=== PATIENT | female | born 1990 | race Caucasian/White ===

== ENCOUNTER 2022-06-28 05:44 | Inpatient (IN) | payer BC, SELFPAY ==
[2022-06-28] VITALS (206 sets, daily range): BP systolic 108–156; BP diastolic 47–90; PULSE 79–139; TEMP 36.3–36.8; O2SAT 92–100; BMI 33.8
--- NOTE | 2022-06-28 06:32 | PM.IMHP ---
H&P: HPI History of Present Illness Date/Time: 06/28/22 06:32 Chief Complaint: Headaches and increased blood pressure at 38 weeks gestation Narrative: this is a 32-year-old female 3 para 2 assisted with with headaches and elevated blood pressures at 38 weeks gestation. Her has been complicated by increased blood pressures over the last 2 visits. PH labs were drawn. She did have a section following a vaginal delivery and has been discussed in great detail [facility] Family History Family History Other Patient denies significant medical history Social History Social History Substance use: never Spiritual care concerns: No Meds Home Medications and Allergies Home Medications Medication Instructions Recorded Confirmed Type prenat.vits,jose,nfe-jxbd-wmito 1 tablet PO DAILY 06/11/22 06/11/22 History Allergies Allergy/AdvReac Type Severity Reaction Status Date / Time No Known Allergies Allergy Unknown Unverified 03/28/16 19:23 Exam Const: General: cooperative, healthy appearing, comfortable, well groomed and overweight Orientation/consciousness: oriented to person, oriented to place and oriented to time HENMT: Head: normal to inspection Resp: Effort & Inspection: normal respiratory effort Cardio: Rate: regular rate Rhythm: regular rhythm Heart sounds: S1 normal heart sound present and S2 normal heart sound present GI: Inspection: normal to inspection ( uterus soft) : Speculum Exam - Vagina: normal appearance of the vagina Speculum Exam - Cervix: normal appearance of the cervix ( cervix 2/ 70/-2. AROM clear. FHT reassuring) Assessment and Plan Assessment and plan (1) Term : Code(s): Z34.90 - Encounter for supervision of normal , unspecified, unspecified trimester Status: Acute (2) Gestational hypertension: Code(s): O13.9 - Gestational [-induced] hypertension without significant proteinuria, unspecified trimester Status: Acute (3) Previous section: Code(s): Z98.891 - History of uterine scar from previous surgery Status: Acute Plan medical induction of labor spontaneous vaginal delivery is expected. PI labs pending
--- NOTE | 2022-06-28 06:37 | LDADM ---
This patient, Princess Reich, was admitted to Labor/Delivery/Recovery 104 on 06/28/22 at 05:44. Plans for labor, pain management and were discussed with patient. Patient/family oriented to hospital policies and general routines including ID bracelet, bed and alarms, visiting hours, pain management, procedures, bathroom and other care routines, personal items, smoking policy, room service/diet and guest tray routines, security routines, and visiting hours. Patient/Family are encouraged to report perceived risks to care and to ask questions if they do not understand what they are told or what they should do. See OBIX for further documentation.
[2022-06-28 07:21] LABS: Basophils Percent Auto 0.6 % (0.2-1.2); Eosinophils Absolute Auto 0.1 K/mm3 (0-0.3); Eosinophils Percent Auto 1.8 % (0-4.4); Hematocrit 31.8 % (37.0-47.0); Hemoglobin 10.6 g/dL (12.0-15.0); Immature Granulocyte Absolute 0.05 K/mm3 (0.00-0.031); Immature Granulocyte Percent A 0.7 % (0-0.5); Lymphocytes Absolute Auto 1.39 K/mm3 (0.9-3.2); Lymphocytes Percent Auto 19.3 % (18.3-44.2); Mean Corpuscular HGB Conc 33.3 g/dl (32-36); Mean Corpuscular Hemoglobin 26.8 pg (26-34); Mean Corpuscular Volume 80.3 fl (80-100); Mean Platelet Volume 10.2 fl (7.4-10.4); Monocytes Absolute Auto 0.4 K/mm3 (0.1-0.6); Monocytes Percent Auto 4.9 % (2.6-8.5); Neutrophils Absolute Auto 5.2 K/mm3 (1.3-6.7); Neutrophils Percent Auto 72.7 % (45.5-73.1); Platelet Count Result 231 k/mm3 (150-375); Red Blood Count 3.96 M/mm3 (4.2-5.4); Red Cell Distribution Width 13.5 % (11.5-14.5); White Blood Count 7.2 K/mm3 (4.5-10.0)
[2022-06-28] MEDS: LACTATED RINGERS 1,000 ML 125 ML IV CONT ×2 (07:27→19:16)
[2022-06-28 07:33] LABS: Alanine Aminotransferase 27 U/L (6-35); Albumin Level 3.5 g/dL (3.5-5.1); Alkaline Phosphatase 199 U/L (38-126); Anion Gap 10 mmol/L (8-16); Aspartate Amino Transferase 22 U/L (14-36); Blood Urea Nitrogen 7 mg/dL (7-17); Calcium 8.3 mg/dL (8.4-10.2); Carbon Dioxide 19 mmol/L (22-30); Chloride 106 mmol/L (98-107); Estimated CRCL calculation 187 ml/min; Estimated Glomerular Filt Rate > 60; Glucose 87 mg/dL (65-110); Potassium 3.8 mmol/L (3.4-5.0); Sodium 135 mmol/L (137-145); Uric Acid 3.9 mg/dL (2.5-7.5)
--- NOTE | 2022-06-28 12:52 | PM.OBPNLAB ---
Pain Control Date/time seen: 06/28/22 12:52 Pain control: tolerating well Pelvic Exam Dilation (cm): 2 Effacement (%): 50 station: -2 Amniotic membrane status: Leaking
[2022-06-28 13:28] LABS: Rapid Plasma Reagin Non-Reactive (NonReactive)
--- NOTE | 2022-06-28 16:08 | PM.OBPNLAB ---
Pain Control Date/time seen: 06/28/22 16:08 Pain control: tolerating well Pelvic Exam Dilation (cm): 4 Effacement (%): 50 station: -2 Amniotic membrane status: Leaking
[2022-06-28] MEDS: ACETAMINOPHEN 500 MG TABLET 1000 MG PO (21:31)
[2022-06-29] VITALS (219 sets, daily range): BP systolic 79–154; BP diastolic 42–94; PULSE 78–162; TEMP 36.2–37.5; O2SAT 90–100
[2022-06-29] MEDS: AMPICILLIN 2 GM/NS 100 ML 2 GM/100 ML BAG IVPB (00:25)
[2022-06-29] MEDS: LACTATED RINGERS 1,000 ML 125 ML IV CONT ×2 (03:26→08:34)
[2022-06-29] MEDS: AMPICILLIN 1 GM/NS 50 ML 1 GM/50 ML BAG IVPB ×3 (04:40→14:07)
--- NOTE | 2022-06-29 05:26 | PM.OBPNLAB ---
Pain Control Date/time seen: 06/29/22 05:26 Pain control: tolerating well and epidural Pelvic Exam Dilation (cm): 5 Effacement (%): 80 station: -2 Amniotic membrane status: Leaking
[2022-06-29] MEDS: SODIUM CHLORIDE 0.9% IV 300 ML 600 ML I-UTERINE (07:10)
[2022-06-29] MEDS: ONDANSETRON INJ 4 MG/2 ML VIAL IV PUSH (07:53)
[2022-06-29] MEDS: OXYTOCIN 30 UNITS/NS 500 ML 30 UNITS/500 ML BAG 12 UNITS IV CONT (08:45)
--- NOTE | 2022-06-29 12:48 | PM.OBPNLAB ---
Pain Control Date/time seen: 06/29/22 12:48 Pain control: tolerating well and epidural Pelvic Exam Dilation (cm): 7 Effacement (%): 80 station: -2 Amniotic membrane status: Leaking
--- NOTE | 2022-06-29 15:52 | PM.OBPRVD ---
OB - Delivery Note Procedure Delivery date: 06/29/22 Procedure: mil Events: Gestational Hypertension Induction method: AROM Delivery augmentation: Pitocin Delivery monitor: External FHT and Internal FHT Route of delivery: Prior to decision for section, ACOG/[facility] labor guidelines were considered and discussed with the patient and staff. Decision made to proceed with the section.: No Episiotomy description: None Laceration Description: None Specimen: No Quantitative Blood Loss (ml): 160 Anesthesia type: Epidural Disposition: Floor [place] Baby Date of : 06/29/22 Time of : 15:43 Weeks of gestation at delivery: 38 gender: Male presentation: vertex position: Right Occiput Anterior Placenta delivery description: Spontaneous Cord Vessel Description: 3 Vessels and Delayed Cord Clamping score one minute: 8 score five minutes: 8
--- NOTE | 2022-06-29 15:54 | PM.DS ---
DS: Admitting Diagnosis Discharge Date 06/30/2022 Admitting Diagnosis Term /gestational hypertension DS: Discharge Diagnosis Discharge Diagnosis (1) Previous section: Code(s): Z98.891 - History of uterine scar from previous surgery Status: Acute (2) Gestational hypertension: Code(s): O13.9 - Gestational [-induced] hypertension without significant proteinuria, unspecified trimester Status: Acute (3) Term : Code(s): Z34.90 - Encounter for supervision of normal , unspecified, unspecified trimester Status: Acute DS: Summary Hospital Course Reason for hospitalization: patient was admitted for induction of labor at term secondary to elevated blood pressures. She had previous vaginal delivery followed by section Hospital Course: the patient underwent successful 24hour induction of labor with successful . Her hospital course unremarkable. She remained afebrile. She was up, voiding without difficulty, ambulating, generally without complaints. Time Spent with Patient Time attestation: Total time spent providing and/or coordinating discharge services: Exam Const: General: cooperative, healthy appearing, comfortable and average body habitus Orientation/consciousness: oriented to person, oriented to place and oriented to time Resp: Effort & Inspection: normal respiratory effort Cardio: Rate: regular rate Rhythm: regular rhythm Heart sounds: S1 normal heart sound present and S2 normal heart sound present GI: Inspection: normal to inspection ( Fundus firm below the umbilicus) Discharge Plan Discharge Attending physician on discharge: Selwyn Montenegro Discharging Clinician: Selwyn Montenegro Patient Disposition: Home, Self-Care Activity: may shower, no straining and pelvic rest Diet: heart healthy Patient Instructions: Antibiotic Form Stand Alone Forms: General Discharge Information Follow-up/Referrals: Selwyn Montenegro MD [Physician] - Discharge Medications: Continued #2 Tablet 1 tablet PO DAILY Date of admission: 06/28/22 05:44 Primary Care Provider: AndrésAnais Admitting Provider: Selwyn Montenegro Attending physician on admission: Selwyn Montenegro Condition: Stable
[2022-06-29] MEDS: OXYTOCIN 30 UNITS/NS 500 ML 30 UNITS/500 ML BAG 125 UNITS IV CONT (16:12)
[2022-06-29] MEDS: IBUPROFEN 600 MG TABLET PO (23:27)
[2022-06-30 04:35] VITALS: BP 118/54; PULSE 80; RESP 16; TEMP 35.9
[2022-06-30 05:42] LABS: Hematocrit 29.6 % (37.0-47.0); Hemoglobin 9.3 g/dL (12.0-15.0)
--- NOTE | 2022-06-30 06:11 | PM.OBPNVD ---
OB - PN: Subj Subjective Date/time seen: 06/30/22 06:11 Patient comments: no complaints and pain well controlled baby status: doing well and nursing well OB - PN: Obj Data Labs 06/30/22 04:47 06/28/22 07:14 Labs: Laboratory Results - last 24 hr 06/30/22 04:47 Hgb 9.3 L Hct 29.6 L OB - PN A/P Plan day: 1 Plan: routine care Time Spent With Patient Time: Total time spent is greater than 50% in coordination of care (as documented) at patient's floor/unit and/or counseling patient: Time with patient: less than 15 minutes Exam Const: General: cooperative, healthy appearing, comfortable and well groomed Orientation/consciousness: oriented to person, oriented to place and oriented to time HENMT: Head: normal to inspection Resp: Effort & Inspection: normal respiratory effort Cardio: Rate: regular rate Rhythm: regular rhythm Heart sounds: S1 normal heart sound present and S2 normal heart sound present GI: Inspection: normal to inspection
[2022-06-30] MEDS: DOCUSATE SODIUM 100 MG CAPSULE PO (07:26)
[2022-06-30] MEDS: MULTIVIT/MIN/PREN/FOL AC/IRON TABLET 1 TAB PO (07:26)
[2022-06-30] MEDS: POLYSACCHARIDE IRON COMPLEX 150 MG CAPSULE PO (07:27)
--- NOTE | 2022-06-30 08:21 | WPDANLDPN2 ---
Anes-Prog Note L&D Date/Time: 06/30/22 08:21 Comfortable throughout: labor and delivery Neuraxial method: epidural Epidural/Spinal procedure site: clean & non-tender Neuro status: Neuro function grossly intact. Cardiovascular status: normal Respiratory status: normal Airway patency: baseline Mental status: baseline Post-Op hydration status: normal Vital Signs: Last Vital Signs Temp 35.9 C L 06/30/22 04:35 Pulse 80 06/30/22 04:35 Resp 16 06/30/22 04:35 BP 118/54 L 06/30/22 04:35 Pulse Ox 99 06/29/22 15:41 O2 Del Method Room Air 06/28/22 06:35 Pain score (VAS): 0 I/O: Intake & Output 06/29/22 06/30/22 06/30/22 23:59 07:59 15:59 Intake Total 500 Output Total 160 Balance 340 Patient feedback: Patient satisfied with anesthetic care.
--- NOTE | 2022-06-30 08:22 | WPDANLDPN2 ---
Anes-Prog Note L&D Date/Time: 06/30/22 08:22 Comfortable throughout: labor and delivery Neuraxial method: epidural Epidural/Spinal procedure site: clean & non-tender Neuro status: Neuro function grossly intact. Cardiovascular status: normal Respiratory status: normal Airway patency: baseline Mental status: baseline Post-Op hydration status: normal Vital Signs: Last Vital Signs Temp 35.9 C L 06/30/22 04:35 Pulse 80 06/30/22 04:35 Resp 16 06/30/22 04:35 BP 118/54 L 06/30/22 04:35 Pulse Ox 99 06/29/22 15:41 O2 Del Method Room Air 06/28/22 06:35 Pain score (VAS): 0 I/O: Intake & Output 06/29/22 06/30/22 06/30/22 23:59 07:59 15:59 Intake Total 500 Output Total 160 Balance 340 Patient feedback: Patient satisfied with anesthetic care.
[2022-06-30 08:25] VITALS: BP 123/69; PULSE 98; RESP 18; TEMP 36.6; O2SAT 98
[2022-06-30 12:18] VITALS: BP 124/76; PULSE 84; RESP 16; TEMP 36.8; O2SAT 99
--- NOTE | 2022-06-30 17:03 | PC.NURSE ---
[id number] Mother led the conversation with her experience and plan to feed her so far and her ability to independently latch optimally without discomfort. Mother is feeding appropriately for growth of and understands stimulating infant to eat if needed. has had appropriate feedings in the last 24 hours meets the outcomes for weight, output and jaundice at this time. Mother states she is confident to continue effectively her infant at home, when to call for assistance and denies any additional assistance or education at this time. Reinforced understanding of milk production, transition of milk, signs of adequate intake, transition of stool, prevention/relief of engorgement, responsive watching for feeding cues, the different methods of stimulating to breastfeed 2-3 hours after the start of the last feeding, community resources, and when to call a provider using the resource of the mom and baby guide. Mother voiced understanding of the education shared. Reported to the primary RN.
[2022-07-01 10:55] VITALS: BP 133/79; PULSE 81; RESP 16; TEMP 36.7; O2SAT 97
== END 2022-06-30 18:00 | disposition home or self-care (01) | DRG 807 ==
LOC: ANHLDR 06-29 15:57 → ANHOB2 06-29 17:55
PROVIDERS: Admitting Provider Obstetrics & Gynecology; PCP Family Medicine; Visit Provider Obstetrics & Gynecology
DX: O13.4 Gestational [pregnancy-induced] hypertension without significant proteinuria, complicating childbirth (principal); Z37.0 Single live birth; Z3A.38 38 weeks gestation of pregnancy; O34.211 Maternal care for low transverse scar from previous cesarean delivery
CPT/HCPCS: 36415; 80053; 84550; 85014; 85018; 85025; 86592; 86850; 86900; 86901; A9270; J0290; J2405; J2590; J2795; J7030; J7120

== ENCOUNTER 2024-04-17 15:35 | Emergency (ER) | payer BC, OTHER, SELFPAY ==
--- NOTE | ~2024-04-17 | CT_ITS ---
CT abdomen pelvis w con Ordering provider: Poonam Donato History: 34 years Female with . RUQ and RLQ pain . Comparison: None. Technique: CT abdomen and pelvis with IV and without oral contrast. Automated exposure control and it erative reconstruction technique were employed. The dose-length product was 739.23 mGy-cm. 100 mL Omn ipaque 350 was given IV. Findings: VISUALIZED LOWER CHEST: 4 mm nodule is seen in the right lower lobe laterally. 6 months follow-up CT is advised. UPPER ABDOMINAL ORGANS: Liver: Mild hepatomegaly. Gallbladder: Normal. Spleen: Normal. Stomach/duodenum: Normal. Pancreas: Normal. Adrenals: Normal. Kidneys: Tiny cyst in the left kidney midpole. PELVIC ORGANS: The bladder is normal. Small follicles seen in the right ovary. A ruptured follicle i s possible in the left ovary. BOWEL AND MESENTERY: Colon: No evidence of diverticulitis. No evidence of appendicitis.. Small Bowel: Normal. No obstruction. Peritoneum/mesentery: No free air. Minimal free fluid is seen in the pelvis. No mesenteric lymphadeno sekou. Small mesenteric lymph nodes are noted. RETROPERITONEUM: Normal aorta. No retroperitoneal lymphadenopathy. MUSCULOSKELETAL: Superficial soft tissues: Small inguinal lymph nodes are noted. The superficial soft tissues are norm al. Bones: Normal spine. IMPRESSION: 1. No evidence of appendicitis, diverticulitis or intestinal obstruction. 2. Minimal free fluid in the pelvis which may be due to ruptured follicle. Clinical correlation advi sed. 3. Nodule in the right lung lower lobe. 6 months follow-up CT is advised. Reviewed, dictated and finalized at location [facility]. [facility] [employer] IMPRESSION: 1. No evidence of appendicitis, diverticulitis or intestinal obstruction. 2. Minimal free fluid in the pelvis which may be due to ruptured follicle. Cli nical correlation advised. 3. Nodule in the right lung lower lobe. 6 months follow-up CT is advised.
[2024-04-17 15:38] VITALS: BP 146/84; PULSE 105; RESP 17; TEMP 36.6; O2SAT 99
--- NOTE | 2024-04-17 15:41 | ED.ABDPAIN ---
HPI - Abdominal Pain General Chief Complaint: Abdominal Pain <Poonam Donato PA-C - Last Filed: 04/17/24 15:41> Stated Complaint: abdominal pain <Poonam Donato PA-C - Last Filed: 04/17/24 15:41> Time Seen by Provider: 04/17/24 16:53 <PEMA Delatorre Last Filed: 04/17/24 15:41> Focused HPI: 34-year-old female presents to the emergency department for abdominal pain for 3 days. Patient states 3 days ago she began having dull pain in the right upper quadrant right lower quadrant. Pain is persisted she has not developed diarrhea and vomiting which prompted her to come the ED. no aggravating or alleviating factors. She reports low-grade fevers with a T-max of a 100.8?. Denies dysuria, hematuria. Endorses history of , no other prior abdominal surgeries. GENERAL: Well-appearing, well-nourished, and in no acute distress. HEAD: Normocephalic, atraumatic. CHEST: Clear to auscultation. ?No respiratory distress. HEART: Regular rate and rhythm.? NEURO: ?Alert and oriented x3. Patient screened in triage and initial orders placed.? ?Additional care and disposition to be based upon?diagnostic testing and treatment. <Poonam Donato PA-C - Last Filed: 04/17/24 15:41> History of Present Illness HPI narrative: Agree with HPI. <Shakir Brar MD - Last Filed: 04/17/24 17:33> Related Data Home Medications: Home Medications ?Medication ?Instructions ?Recorded ?Confirmed ?Last Taken ?Type prenat.vits,jose,aag-sdla-ueunr 1 tablet PO DAILY 06/11/22 06/28/22 06/10/22 12:00 History <PEMA Delatorre Last Filed: 04/17/24 15:41> Allergies/Adverse Reactions: Allergies Allergy/AdvReac Type Severity Reaction Status Date / Time No Known Allergies Allergy Unknown Unverified 04/17/24 15:35 <Poonam Donato PA-C - Last Filed: 04/17/24 15:41> Review of Systems Review of Systems: All systems reviewed & are unremarkable except as noted in HPI and below <Shakir Brar MD - Last Filed: 04/17/24 17:33> Constitutional: Constitutional: Reports no additional constitutional complaints <Shakir Brar MD - Last Filed: 04/17/24 17:33> Cardiovascular: Cardiovascular: Reports no additional cardiovascular complaints <Shakir Brar MD - Last Filed: 04/17/24 17:33> Respiratory: Respiratory: Reports no additional respiratory complaints <Shakir Brar MD - Last Filed: 04/17/24 17:33> Gastrointestinal: Gastrointestinal: Reports no additional gastrointestinal complaints <Shakir Brar MD - Last Filed: 04/17/24 17:33> Genitourinary: Genitourinary: Reports no additional female genitourinary complaints <Shakir Brar MD - Last Filed: 04/17/24 17:33> [facility] Past Medical History Medical History: Medical History (Updated 04/17/24 @ 17:33 by Shakir Brar MD) Healthy female adult <Poonam Donato PA-C - Last Filed: 04/17/24 15:41> Surgical History Surgical History: Surgical History (Updated 04/17/24 @ 17:30 by Shakir Brar MD) Previous section <Poonam Donato PA-C - Last Filed: 04/17/24 15:41> Family History Family History: Family History Other Patient denies significant medical history <Poonam Donato PA-C - Last Filed: 04/17/24 15:41> Social History Social History: Social History Smoking status: Never smoker Substance use: never Lack of Transportation: No Lack of Food: Never True Current Housing: I Have Housing Concerned About Future Housing: No Difficulty Paying Gas/Electric Bills: No Difficulty Paying for Meds: No Currently Unemployed: No Education: High School Diploma/GED Difficulty w/ Childcare or Family Care: No Spiritual care concerns: No <Poonam Donato PA-C - Last Filed: 04/17/24 15:41> Exam Narrative: GENERAL: Well-appearing, well-nourished, and in no acute distress. HEAD: Normocephalic, atraumatic. ENT: Mucous membranes moist. CHEST: Clear to auscultation. No respiratory distress. HEART: Regular rate and rhythm. Normal peripheral pulses. ABDOMEN: Soft, nontender, nondistended. EXTREMITIES: Normal range of motion. No edema. SKIN: Warm, dry, no rash. NEURO: Alert and oriented x3. PSYCH: Normal mood and affect. <Shakir Brar MD - Last Filed: 04/17/24 17:33> Course Course Emergency Course: Patient resting comfortably. Informed of results. Slightly anxious. Discussed ovarian cyst rupture as well as lung nodule. Patient localized mild gastroenteritis. Appropriate for discharge home. Patient does not wish to receive any medication. <Shakir Brar MD - Last Filed: 04/17/24 17:33> Vital Signs Vital signs: Vital Signs Temperature 98 F 04/17/24 15:38 Pulse Rate 105 H 04/17/24 15:38 Respiratory Rate 17 04/17/24 15:38 Blood Pressure 146/84 H 04/17/24 15:38 Pulse Oximetry 99 04/17/24 15:38 Oxygen Delivery Room Air 04/17/24 15:38 Temperature 98 F 04/17/24 15:38 Pulse Rate 105 H 04/17/24 15:38 Respiratory Rate 17 04/17/24 15:38 Blood Pressure 146/84 H 04/17/24 15:38 Pulse Oximetry 99 04/17/24 15:38 Oxygen Delivery Room Air 04/17/24 15:38 <Poonam Donato PA-C - Last Filed: 04/17/24 15:41> Vital Signs Temperature 98 F 04/17/24 15:38 Pulse Rate 105 H 04/17/24 15:38 Respiratory Rate 17 04/17/24 15:38 Blood Pressure 146/84 H 04/17/24 15:38 Pulse Oximetry 99 04/17/24 15:38 Oxygen Delivery Room Air 04/17/24 15:38 Temperature 98 F 04/17/24 15:38 Pulse Rate 105 H 04/17/24 15:38 Respiratory Rate 17 04/17/24 15:38 Blood Pressure 146/84 H 04/17/24 15:38 Pulse Oximetry 99 04/17/24 15:38 Oxygen Delivery Room Air 04/17/24 15:38 <Shakir Brar MD - Last Filed: 04/17/24 17:33> MDM - Abdominal Pain Lab Data Result diagrams: 04/17/24 15:56 04/17/24 15:56 <Poonam Donato PA-C - Last Filed: 04/17/24 15:41> Labs: Lab Results 04/17/24 Range/Units 15:56 WBC 9.0 (4.5-10.0) K/mm3 RBC 4.79 (4.2-5.4) M/mm3 Hgb 13.6 D (12.0-15.0) g/dL Hct 40.4 (37.0-47.0) % MCV 84.3 (80-100) fl MCH 28.4 (26-34) pg MCHC 33.7 (32-36) g/dl RDW 12.0 (11.5-14.5) % Plt Count 229 (150-375) k/mm3 MPV 10.1 (7.4-10.4) fl Immature Gran % (Auto) 0.1 (0-0.5) % Neut % (Auto) 73.5 H (45.5-73.1) % Lymph % (Auto) 20.6 (18.3-44.2) % [place] % (Auto) 4.7 (2.6-8.5) % Eos % (Auto) 0.8 (0-4.4) % Baso % (Auto) 0.3 (0.2-1.2) % Lymph # (Auto) 1.85 (0.9-3.2) K/mm3 [place] # (Auto) 0.4 (0.1-0.6) K/mm3 Eos # (Auto) 0.1 (0-0.3) K/mm3 Baso # (Auto) 0.0 (0.0-0.1) K/mm3 Abs Immat Gran (auto) 0.01 (0.00-0.031) K/mm3 Absolute Neuts (auto) 6.6 (1.3-6.7) K/mm3 Absolute Nucleated RBC 0.000 (0.0-0.012) K/mm3 Nucleated RBC % 0.0 (0.0-0.2) % Sodium 141 (137-145) mmol/L Potassium 3.3 L (3.4-5.0) mmol/L Chloride 102 (98-107) mmol/L Carbon Dioxide 25 (22-30) mmol/L Anion Gap 14 H (4-12) mmol/L BUN 11 (7-17) mg/dL Creatinine 0.82 (0.7-1.0) mg/dL Estim Creat Clear Calc 96 ml/min Estimated GFR > 60 (59 - ) Glucose 131 H (65-110) mg/dL Calcium 9.0 (8.4-10.2) mg/dL Total Bilirubin 1.1 (0.2-1.3) mg/dL AST 18 (14-36) U/L ALT 14 (6-35) U/L Alkaline Phosphatase 55 (38-126) U/L Total Protein 8.0 (6.3-8.2) g/dL Albumin 4.7 (3.5-5.1) g/dL Lipase 33 (23-300) U/L Urine Color Yellow (Yellow) Urine Appearance Clear (Clear) Urine pH 5.5 (5.0-9.0) Ur Specific [place] 1.009 (1.001-1.035) Urine Protein Negative (Negative) mg/dL Urine Glucose (UA) Negative (Negative) mg/dL Urine Ketones Negative (Negative) mg/dL Ur Blood (Man) Negative (Negative) Urine Nitrate Negative (Negative) Urine Bilirubin Negative (Negative) Urine Urobilinogen 0.2 (<2.0) mg/dL Add Ur Microanalysis Reviewed Leukocyte Esterase Rfl 1+ H (Negative) TYLOR/UL Urine RBC 0-2 (0-2) /hpf Urine WBC 0-5 (0-3) /hpf Ur Squamous Epith Cells Occasional (Few) /hpf Urine Bacteria None seen /hpf Urine Casts 0-2 POC Urine HCG, Qual Negative (Negative) Influenza A (RT-PCR) Negative (Negative) Influenza B (RT-PCR) Negative (Negative) RSV (RT-PCR) Negative (Negative) SARS-CoV-2 RNA (RT-PCR) Negative (Negative) <Poonam Donato PA-C - Last Filed: 04/17/24 15:41> Lab Results 04/17/24 Range/Units 15:56 WBC 9.0 (4.5-10.0) K/mm3 RBC 4.79 (4.2-5.4) M/mm3 Hgb 13.6 D (12.0-15.0) g/dL Hct 40.4 (37.0-47.0) % MCV 84.3 (80-100) fl MCH 28.4 (26-34) pg MCHC 33.7 (32-36) g/dl RDW 12.0 (11.5-14.5) % Plt Count 229 (150-375) k/mm3 MPV 10.1 (7.4-10.4) fl Immature Gran % (Auto) 0.1 (0-0.5) % Neut % (Auto) 73.5 H (45.5-73.1) % Lymph % (Auto) 20.6 (18.3-44.2) % [place] % (Auto) 4.7 (2.6-8.5) % Eos % (Auto) 0.8 (0-4.4) % Baso % (Auto) 0.3 (0.2-1.2) % Lymph # (Auto) 1.85 (0.9-3.2) K/mm3 [place] # (Auto) 0.4 (0.1-0.6) K/mm3 Eos # (Auto) 0.1 (0-0.3) K/mm3 Baso # (Auto) 0.0 (0.0-0.1) K/mm3 Abs Immat Gran (auto) 0.01 (0.00-0.031) K/mm3 Absolute Neuts (auto) 6.6 (1.3-6.7) K/mm3 Absolute Nucleated RBC 0.000 (0.0-0.012) K/mm3 Nucleated RBC % 0.0 (0.0-0.2) % Sodium 141 (137-145) mmol/L Potassium 3.3 L (3.4-5.0) mmol/L Chloride 102 (98-107) mmol/L Carbon Dioxide 25 (22-30) mmol/L Anion Gap 14 H (4-12) mmol/L BUN 11 (7-17) mg/dL Creatinine 0.82 (0.7-1.0) mg/dL Estim Creat Clear Calc 96 ml/min Estimated GFR > 60 (59 - ) Glucose 131 H (65-110) mg/dL Calcium 9.0 (8.4-10.2) mg/dL Total Bilirubin 1.1 (0.2-1.3) mg/dL AST 18 (14-36) U/L ALT 14 (6-35) U/L Alkaline Phosphatase 55 (38-126) U/L Total Protein 8.0 (6.3-8.2) g/dL Albumin 4.7 (3.5-5.1) g/dL Lipase 33 (23-300) U/L Urine Color Yellow (Yellow) Urine Appearance Clear (Clear) Urine pH 5.5 (5.0-9.0) Ur Specific [place] 1.009 (1.001-1.035) Urine Protein Negative (Negative) mg/dL Urine Glucose (UA) Negative (Negative) mg/dL Urine Ketones Negative (Negative) mg/dL Ur Blood (Man) Negative (Negative) Urine Nitrate Negative (Negative) Urine Bilirubin Negative (Negative) Urine Urobilinogen 0.2 (<2.0) mg/dL Add Ur Microanalysis Reviewed Leukocyte Esterase Rfl 1+ H (Negative) TYLOR/UL Urine RBC 0-2 (0-2) /hpf Urine WBC 0-5 (0-3) /hpf Ur Squamous Epith Cells Occasional (Few) /hpf Urine Bacteria None seen /hpf Urine Casts 0-2 POC Urine HCG, Qual Negative (Negative) Influenza A (RT-PCR) Negative (Negative) Influenza B (RT-PCR) Negative (Negative) RSV (RT-PCR) Negative (Negative) SARS-CoV-2 RNA (RT-PCR) Negative (Negative) <Shakir Brar MD - Last Filed: 04/17/24 17:33> Imaging Data Radiologist's impression: ITS Impressions Abdomen/Pelvis CT 04/17/24 17:05 IMPRESSION: 1. No evidence of appendicitis, diverticulitis or intestinal obstruction. 2. Minimal free fluid in the pelvis which may be due to ruptured follicle. Clinical correlation advised. 3. Nodule in the right lung lower lobe. 6 months follow-up CT is advised. <Poonam Donato PA-C - Last Filed: 04/17/24 15:41> ITS Impressions Abdomen/Pelvis CT 04/17/24 17:05 IMPRESSION: 1. No evidence of appendicitis, diverticulitis or intestinal obstruction. 2. Minimal free fluid in the pelvis which may be due to ruptured follicle. Clinical correlation advised. 3. Nodule in the right lung lower lobe. 6 months follow-up CT is advised. <Shakir Brar MD - Last Filed: 04/17/24 17:33> Discharge Plan Discharge Clinical Impression: Ovarian cyst rupture, Gastroenteritis, Lung nodules <Poonam Donato PA-C - Last Filed: 04/17/24 15:41> Patient Disposition: Home, Self-Care <Poonam Donato PA-C - Last Filed: 04/17/24 15:41> Condition: Stable <Poonam Donato PA-C - Last Filed: 04/17/24 15:41> Instructions: Gastroenteritis (ED), Pulmonary Nodules (ED), Ruptured Ovarian Cyst (ED) <Poonam Donato PA-C - Last Filed: 04/17/24 15:41> Additional Instructions: Return to the emergency department if you develop severe abdominal pain, severe nausea and vomiting to the point where you are unable to keep down fluids, if you develop chest pain or difficulty breathing, blood in your stool, dizziness or fainting, or if you develop any other new or concerning symptoms as these could be signs of more serious medical illness. Try to stay well hydrated. You need to CT scan follow-up for your pulmonary nodule in 6 months. Speak with your primary care physician about this. <Poonam Doanto PA-C - Last Filed: 04/17/24 15:41> Patient Language: Salvadorean <Poonam Donato PA-C - Last Filed: 04/17/24 15:41> Prescriptions: No Action prenat.vits,jose,sui-xdba-lufgh Tablet 1 tablet PO DAILY <Poonam Donato PA-C - Last Filed: 04/17/24 15:41> Follow-up/Referrals: Andrés,MD Anais [Primary Care Provider] - 1 Week <PEMA Delatorre Last Filed: 04/17/24 15:41>
[2024-04-17 15:59] LABS: BEDSIDEPREGUCG Negative (Negative)
[2024-04-17 16:10] LABS: Basophils Percent Auto 0.3 % (0.2-1.2); Eosinophils Absolute Auto 0.1 K/mm3 (0-0.3); Eosinophils Percent Auto 0.8 % (0-4.4); Hematocrit 40.4 % (37.0-47.0); Hemoglobin 13.6 g/dL (12.0-15.0); Immature Granulocyte Absolute 0.01 K/mm3 (0.00-0.031); Immature Granulocyte Percent A 0.1 % (0-0.5); Lymphocytes Absolute Auto 1.85 K/mm3 (0.9-3.2); Lymphocytes Percent Auto 20.6 % (18.3-44.2); Mean Corpuscular HGB Conc 33.7 g/dl (32-36); Mean Corpuscular Hemoglobin 28.4 pg (26-34); Mean Corpuscular Volume 84.3 fl (80-100); Mean Platelet Volume 10.1 fl (7.4-10.4); Monocytes Absolute Auto 0.4 K/mm3 (0.1-0.6); Monocytes Percent Auto 4.7 % (2.6-8.5); Neutrophils Absolute Auto 6.6 K/mm3 (1.3-6.7); Neutrophils Percent Auto 73.5 % (45.5-73.1); Platelet Count Result 229 k/mm3 (150-375); Red Blood Count 4.79 M/mm3 (4.2-5.4)
[2024-04-17 16:33] LABS: Add Urine Microscopic? YES; Appearance Urine Clear (Clear); Bacteria Urine None Seen /hpf; Bilirubin Urine Negative (Negative); Blood Urine Negative (Negative); Color Urine Yellow (Yellow); Glucose Urine UA Negative (Negative); Ketones Urine Negative (Negative); Leukocyte Esterase Ur 1+ LEU/UL (Negative); Need Manual Microscopic Reviewed; Nitrate Urine Negative (Negative); Non Pathogenic Casts 0-2; Protein Urine Negative (Negative); RBC Urine 0-2 /hpf (0-2); Specific Grav Ur 1.009 (1.001-1.035); Squamous Epithelial Cell Urine Occasional /hpf (Few); Urobilinogen Urine 0.2 mg/dL (<2.0); WBC Urine 0-5 /hpf (0-3); pH Urine 5.5 (5.0-9.0)
[2024-04-17 16:37] LABS: Alanine Aminotransferase 14 U/L (6-35); Albumin Level 4.7 g/dL (3.5-5.1); Alkaline Phosphatase 55 U/L (38-126); Anion Gap 14 mmol/L (4-12); Aspartate Amino Transferase 18 U/L (14-36); Bilirubin,Total 1.1 mg/dL (0.2-1.3); Blood Urea Nitrogen 11 mg/dL (7-17); Carbon Dioxide 25 mmol/L (22-30); Chloride 102 mmol/L (98-107); Estimated CRCL calculation 96 ml/min; Estimated Glomerular Filt Rate > 60; Glucose 131 mg/dL (65-110); Lipase 33 U/L (23-300); Potassium 3.3 mmol/L (3.4-5.0); Sodium 141 mmol/L (137-145)
[2024-04-17 16:46] LABS: Influenza A QL RT-PCR Negative (Negative); Influenza B QL RT-PCR Negative (Negative); RSV RNA, RT-PCR Negative (Negative); SARS-CoV-2 RNA PCR Negative (Negative)
[2024-04-17 18:53] VITALS: BP 131/71; PULSE 71; RESP 16; O2SAT 99
== END 2024-04-17 18:55 | disposition home or self-care (01) ==
PROVIDERS: Physician Assistant; Emergency Provider Emergency Medicine; PCP Family Medicine
DX: N83.201 Unspecified ovarian cyst, right side (principal); K52.9 Noninfective gastroenteritis and colitis, unspecified; R91.8 Other nonspecific abnormal finding of lung field; Z20.822 Contact with and (suspected) exposure to COVID-19
CPT/HCPCS: 36415; 74177; 80053; 81001; 81025; 83690; 85025; 87086; 87637; 99284; Q9967